=== PATIENT | female | born 1970 ===

== ENCOUNTER 2018-04-24 06:35 | Emergency (ER) | payer OTHER ==
[2018-04-24 08:22] LABS: BASO % 0.4 % (0.0-2.0); EOS # 0.2 K/uL (0.0-0.7); EOS % 2.1 % (0.0-4.0); HEMOGLOBIN 9.9 g/dL (12.0-16.0); LYMPH # 1.4 K/uL (1.0-4.3); LYMPH % 14.1 % (20.0-40.0); MEAN CELL VOLUME 68.9 fl (81.0-99.0); MONO # 0.9 K/uL (0.0-0.8); MONO % 9.3 % (0.0-10.0); NEUT # 7.5 K/uL (1.8-7.0); NEUT % 74.1 % (50.0-75.0); NRBC % 0.1 % (0.0-0.0); RBC 4.5 Mil/uL (3.80-5.20); RED CELL DISTRIBUTION WIDTH 16.7 % (11.5-14.5); WHITE BLOOD COUNT 10.1 K/uL (4.8-10.8)
[2018-04-24 08:32] LABS: BLOOD UREA NITROGEN 17 mg/dl (7-17); CALCIUM 8.9 mg/dL (8.4-10.2); GFR NON-AFRICAN AMERICAN > 60
--- NOTE | 2018-04-24 10:05 | RAD ---
Date of service: 04/24/2018 PROCEDURE: Radiographs of the right elbow. HISTORY: sudden onset of pain last night. no injury. COMPARISON: No prior. FINDINGS: BONES: Normal. No fracture. JOINTS: Trace osteoarthritis ulnar coronoid spurring. SOFT TISSUES: Normal. JOINT EFFUSION: None. OTHER FINDINGS: None. IMPRESSION: Trace osteoarthrosis-ulnar coronoid spurring. No fracture or lytic lesion.
[2018-04-24 11:06] VITALS: TEMP 97.9; O2SAT 98
--- NOTE | 2018-04-24 11:12 | ED PDOC ---
Upper Extremity Pain/Injury Time Seen by Provider: 04/24/18 07:07 Chief Complaint (Nursing): Upper Extremity Problem/Injury Past Medical History Vital Signs: Last Vital Signs Temp 97.9 F 04/24/18 06:49 Pulse 67 04/24/18 06:49 Resp 18 04/24/18 06:49 BP 121/78 04/24/18 06:49 Pulse Ox 98 04/24/18 06:49 - Family History Family History: States: No Known Family Hx - Home Medications Home Medications: Ambulatory Orders Medication Instructions Recorded Naproxen [Naprosyn] 500 mg PO BID PRN #20 tablet 04/24/18 - Allergies Allergies/Adverse Reactions: Allergies Allergy/AdvReac Type Severity Reaction Status Date / Time pollen extracts Allergy CONGESTION Verified 04/24/18 06:48 - Laboratory Results Result Diagrams: 04/24/18 08:10 04/24/18 08:10 - ECG O2 Sat by Pulse Oximetry: 98 Disposition - Clinical Impression Clinical Impression: Osteoarthrosis of right elbow - Patient ED Disposition Is Patient to be Admitted: No Doctor Will See Patient In The: Office Counseled Patient/Family Regarding: Diagnosis, Need For Followup, Rx Given - Disposition Referrals: [facility] [Outside] Disposition: Routine/Home Disposition Time: 10:45 Condition: IMPROVED Prescriptions: Naproxen [Naprosyn] 500 mg PO BID PRN #20 tablet PRN Reason: Pain, Moderate (4-7) Instructions: Osteoarthritis Forms: [facility] (Cymraes), [facility] School/Work Excuse Print Language: ISRAELI - POA Present On Arrival: None
--- NOTE | 2018-04-24 11:34 | ED PDOC ---
Upper Extremity Pain/Injury Time Seen by Provider: 04/24/18 07:07 Chief Complaint (Nursing): Upper Extremity Problem/Injury History Per: Patient (This 48 yo female states onset of severe right elbow pain last night while she was doing dishes as usual. Patient denies fall, blunt injury, overexertion or other injuries. She denies other medical problems. She took ibuprofen 400mg last night without significant relief.) History/Exam Limitations: no limitations Past Medical History Reviewed: Historical Data, Nursing Documentation, Vital Signs Vital Signs: Last Vital Signs Temp 97.9 F 04/24/18 06:49 Pulse 70 04/24/18 11:30 Resp 17 04/24/18 11:30 BP 118/90 04/24/18 11:30 Pulse Ox 98 04/24/18 11:30 - Medical History PMH: Anemia - Surgical History Surgical History: No Surg Hx - Family History Family History: States: No Known Family Hx - Living Arrangements Living Arrangements: With Family - Social History Current smoker - smoking cessation education provided: No - Home Medications Home Medications: Ambulatory Orders Medication Instructions Recorded Naproxen [Naprosyn] 500 mg PO BID PRN #20 tablet 04/24/18 - Allergies Allergies/Adverse Reactions: Allergies Allergy/AdvReac Type Severity Reaction Status Date / Time pollen extracts Allergy CONGESTION Verified 04/24/18 06:48 Review of Systems ROS Statement: Except As Marked, All Systems Reviewed And Found Negative Constitutional: Negative for: Fever, Chills Cardiovascular: Negative for: Chest Pain Respiratory: Negative for: Shortness of Breath Gastrointestinal: Negative for: Nausea, Vomiting Genitourinary Female: Negative for: Dysuria Physical Exam - Reviewed Nursing Documentation Reviewed: Yes Vital Signs Reviewed: Yes - Physical Exam Appears: Positive for: Well, No Acute Distress Head Exam: Positive for: ATRAUMATIC, NORMAL INSPECTION, NORMOCEPHALIC Skin: Positive for: Normal Color, Warm, DRY Eye Exam: Positive for: Normal appearance ENT: Positive for: Normal ENT Inspection Neck: Positive for: Normal Cardiovascular/Chest: Positive for: Regular Rate, Rhythm Respiratory: Positive for: CNT, Normal Breath Sounds Gastrointestinal/Abdominal: Positive for: Normal Exam, Soft Back: Positive for: Normal Inspection Extremity: Positive for: Normal ROM, Tenderness (along the elbow joint, especially along the lateral and and medial epicondyles.) Neurologic/Psych: Positive for: Alert, Oriented - Laboratory Results Result Diagrams: 04/24/18 08:10 04/24/18 08:10 - ECG O2 Sat by Pulse Oximetry: 98 Disposition - Clinical Impression Clinical Impression: Osteoarthrosis of right elbow - Patient ED Disposition Is Patient to be Admitted: No Doctor Will See Patient In The: Office Counseled Patient/Family Regarding: Diagnosis, Need For Followup, Rx Given - Disposition Referrals: [facility] [Outside] Disposition: Routine/Home Disposition Time: 10:45 Condition: IMPROVED Prescriptions: Naproxen [Naprosyn] 500 mg PO BID PRN #20 tablet PRN Reason: Pain, Moderate (4-7) Instructions: Osteoarthritis Forms: [facility] (Romansh), [facility] ED School/Work Excuse Print Language: THAI - POA Present On Arrival: None
[2018-04-24 11:47] VITALS: BP 118/90; PULSE 70; RESP 17
== END 2018-04-24 11:26 | disposition home or self-care (01) ==
LOC: H.ER 06:35
DX: M19.071 Primary osteoarthritis, right ankle and foot (principal); M19.021 Primary osteoarthritis, right elbow
CPT/HCPCS: 73080; 80048; 81025; 85025; 99283; J1885

== ENCOUNTER 2018-06-22 01:54 | Emergency (ER) | payer SELFPAY ==
[2018-06-22 02:25] VITALS: BP 130/82; PULSE 90; RESP 17; TEMP 99.4; O2SAT 96
--- NOTE | 2018-06-22 03:47 | ED PDOC ---
Upper Extremity Pain/Injury Time Seen by Provider: 06/22/18 02:30 Chief Complaint (Nursing): Upper Extremity Problem/Injury Chief Complaint (Provider): Upper Extremity Problem/Injury History Per: Patient History/Exam Limitations: no limitations Onset/Duration Of Symptoms: Days (x1) Current Symptoms Are (Timing): Still Present Additional Complaint(s): 48 year old female presents to ED with right shoulder pain that exacerbates with movement status post house cleaning. Patient states she had similar symptoms in the past then diagnosed with arthritis at the time. She took Tylenol with minimal relief. Otherwise, patient denies any falls, blunt trauma or injury to affected area. PCP: [facility] Gutierrez Past Medical History Reviewed: Historical Data, Nursing Documentation, Vital Signs Vital Signs: Last Vital Signs Temp 99.4 F 06/22/18 02:06 Pulse 90 06/22/18 02:06 Resp 17 06/22/18 02:06 BP 130/82 06/22/18 02:06 Pulse Ox 96 06/22/18 02:06 - Medical History PMH: Anemia - Family History Family History: States: Unknown Family Hx - Home Medications Home Medications: Ambulatory Orders Medication Instructions Recorded Naproxen [Naprosyn] 500 mg PO BID PRN #20 tablet 04/24/18 Naproxen [Naprosyn] 500 mg PO Q12 #14 tab 06/22/18 - Allergies Allergies/Adverse Reactions: Allergies Allergy/AdvReac Type Severity Reaction Status Date / Time pollen extracts Allergy CONGESTION Verified 04/24/18 06:48 Review of Systems ROS Statement: Except As Marked, All Systems Reviewed And Found Negative Musculoskeletal: Positive for: Shoulder Pain (right-sided). Negative for: Other (blunt trauma or injury) Physical Exam - Reviewed Nursing Documentation Reviewed: Yes Vital Signs Reviewed: Yes - Physical Exam Appears: Positive for: Non-toxic, No Acute Distress Extremity: Positive for: Tenderness (over right bicep tendon and AC joint with passive ROM). Negative for: Deformity (or warmth/erythema of right shoulder) Neurologic/Psych: Positive for: Alert, Oriented. Negative for: Motor/Sensory Deficits - Laboratory Results Urine POC: Negative - ECG O2 Sat by Pulse Oximetry: 96 (RA) Pulse Ox Interpretation: Normal Medical Decision Making Medical Decision Making: Initial Impression: 48 year old female with frozen shoulder. Initial Plan: * Urine * Toradol 60mg IM * XR shoulder (right) Time: 322 --XR right shoulder interpreted by provider: (-) dislocation or fracture. Time: 414 --Upon provider reevaluation, patient is medically stable and requires no further treatment in the ED at this time. Patient will be discharged home with Rx for Naprosyn. Counseling was provided and all questions were answered regarding diagnosis. There is agreement to discharge plan. Return if symptoms persist or worsen. Clinical Impression: Frozen shoulder Scribe Attestation: Documented by Francine Hernandez, acting as a scribe for Jagdish Gomes MD. Provider Scribe Attestation: All medical record entries made by the Scribe were at my direction and personally dictated by me. I have reviewed the chart and agree that the record accurately reflects my personal performance of the history, physical exam, medical decision making, and the department course for this patient. I have also personally directed, reviewed, and agree with the discharge instructions and disposition. Disposition - Clinical Impression Clinical Impression: Frozen shoulder - Patient ED Disposition Is Patient to be Admitted: No Counseled Patient/Family Regarding: Studies Performed, Diagnosis, Rx Given - Disposition Disposition: Routine/Home Disposition Time: 04:15 Condition: STABLE Prescriptions: Naproxen [Naprosyn] 500 mg PO Q12 #14 tab Instructions: Frozen Shoulder, Frozen Shoulder Exercises Forms: [employer] (Kyrgyz) Print Language: CHINESE
--- NOTE | 2018-06-22 09:26 | RAD ---
Date of service: 06/22/2018 PROCEDURE: Radiographs of the Right Shoulder HISTORY: r/o fracture COMPARISON: No prior. FINDINGS: BONES: Normal. No fracture. JOINTS: Glenohumeral and acromioclavicular joints preserved. No significant osteoarthritis. SOFT TISSUES: Normal. OTHER FINDINGS: None. IMPRESSION: No evidence of acute displaced fracture nor dislocation
== END 2018-06-22 04:50 | disposition home or self-care (01) ==
LOC: H.ER 01:54
DX: M75.01 Adhesive capsulitis of right shoulder (principal)
CPT/HCPCS: 73030; 81025; 96372; 99284; J1885

== ENCOUNTER 2018-07-14 20:41 | Emergency (ER) | payer SELFPAY ==
[2018-07-14 20:52] VITALS: RESP 18
--- NOTE | 2018-07-14 21:29 | ED PDOC ---
Upper Extremity Pain/Injury Time Seen by Provider: 07/14/18 20:55 Chief Complaint (Nursing): Finger,Hand,&Wrist Chief Complaint (Provider): Upper Extremity Pain/Injury History Per: Patient History/Exam Limitations: no limitations Onset/Duration Of Symptoms: Days (x5) Current Symptoms Are (Timing): Still Present Additional Complaint(s): 48 y/o female with no significant PMHx presents to the ED for evaluation of right arm and hand swelling and pain, onset 5 days ago. Patient states she has began noticing pain and swelling has been increasingly worsening over the last five days thus prompting today's visit. Patient reports of taking Tylenol with minimal improvement. Patient states last dose of Tylenol was at 5:00 PM. Otherwise, patient denies trauma, fall, shortness of breath and any history of Hypercoagulability, DVT or PE in the past. PMD: Machelle Magana Past Medical History Reviewed: Historical Data, Nursing Documentation, Vital Signs Vital Signs: Last Vital Signs Temp 97.9 F 07/14/18 20:49 Pulse 66 07/14/18 20:49 Resp 18 07/14/18 20:49 BP 123/76 07/14/18 20:49 Pulse Ox 99 07/14/18 20:49 - Medical History PMH: Anemia - Surgical History Surgical History: No Surg Hx - Family History Family History: States: Unknown Family Hx - Home Medications Home Medications: Ambulatory Orders Medication Instructions Recorded Naproxen [Naprosyn] 500 mg PO BID PRN #20 tablet 04/24/18 Naproxen [Naprosyn] 500 mg PO Q12 #14 tab 06/22/18 - Allergies Allergies/Adverse Reactions: Allergies Allergy/AdvReac Type Severity Reaction Status Date / Time pollen extracts Allergy CONGESTION Verified 04/24/18 06:48 Review of Systems ROS Statement: Except As Marked, All Systems Reviewed And Found Negative Cardiovascular: Negative for: Chest Pain Respiratory: Negative for: Shortness of Breath Musculoskeletal: Positive for: Arm Pain (right), Hand Pain (right) Physical Exam - Reviewed Nursing Documentation Reviewed: Yes Vital Signs Reviewed: Yes - Physical Exam Appears: Positive for: No Acute Distress Cardiovascular/Chest: Positive for: Regular Rate, Rhythm. Negative for: Murmur Respiratory: Positive for: Normal Breath Sounds. Negative for: Respiratory Distress Pulses-Radial (L): 2+ Pulses-Radial (R): 2+ Extremity: Positive for: Capillary Refill (< 3 seconds), Swelling (from the right mid-forearm to the hand.). Negative for: Normal ROM (Decreased flexion of all five digits. Mildly decreased flexion at the wrists), Tenderness (on the forearm or hand), Deformity, Other (ecchymosis, erythema ) Neurologic/Psych: Positive for: Alert, Oriented. Negative for: Motor/Sensory Deficits - Laboratory Results Result Diagrams: 07/14/18 21:33 07/14/18 21:33 - ECG O2 Sat by Pulse Oximetry: 99 (RA) Pulse Ox Interpretation: Normal Medical Decision Making Medical Decision Making: Time: 2124 Plan: -- BMP -- CBC with Differentials -- D Dimer -- Duplex Upper Extremity Vein Right US Right Upper extremity venous duplex: No evidence of DVT. D-dimer: 683 Given significantly elevated D-dimer, pt to be ruled out for PE. Pt endorsed to [facility] pending chest CTA and re-evaluation. ___ Scribe Attestation: Documented by Tio Long, acting as a scribe Jay Oro PA-C. Provider Scribe Attestation: All medical record entries made by the Scribe were at my direction and personally dictated by me. I have reviewed the chart and agree that the record accurately reflects my personal performance of the history, physical exam, medical decision making, and the department course for this patient. I have also personally directed, reviewed, and agree with the discharge instructions and disposition. Disposition - Clinical Impression Clinical Impression: Swelling of right hand - Patient ED Disposition Is Patient to be Admitted: Transfer of Care - Disposition Disposition: Transfer of Care ([facility]) Disposition Time: 00:30 Condition: FAIR Forms: [employer] (Swazi)
[2018-07-14 21:36] LABS: BASO % 0.6 % (0.0-2.0); EOS # 0.2 K/uL (0.0-0.7); EOS % 2.4 % (0.0-4.0); HEMOGLOBIN 9.7 g/dL (12.0-16.0); LYMPH # 1.9 K/uL (1.0-4.3); LYMPH % 29.4 % (20.0-40.0); MEAN CELL VOLUME 68.2 fl (81.0-99.0); MEAN CORPUSCULAR HEMOGLOBIN 21.5 pg (27.0-31.0); MEAN CORPUSCULAR HGB CONC 31.6 g/dL (33.0-37.0); MEAN PLATELET VOLUME 8.3 fl (7.2-11.7); MONO # 0.6 K/uL (0.0-0.8); MONO % 9.4 % (0.0-10.0); NEUT # 3.8 K/uL (1.8-7.0); NEUT % 58.2 % (50.0-75.0); RBC 4.51 Mil/uL (3.80-5.20); RED CELL DISTRIBUTION WIDTH 18.7 % (11.5-14.5); WHITE BLOOD COUNT 6.5 K/uL (4.8-10.8)
[2018-07-14 21:45] LABS: BLOOD UREA NITROGEN 16 mg/dl (7-17); CALCIUM 8.8 mg/dL (8.4-10.2); GFR NON-AFRICAN AMERICAN > 60
--- NOTE | 2018-07-15 00:19 | ED PDOC ---
- Laboratory Results Result Diagrams: 07/14/18 21:33 07/14/18 21:33 Lab Results: D-Dimer, Quantitative 685 ng/mlDDU (0-230) H 07/14/18 21:33 - ECG O2 Sat by Pulse Oximetry: 99 (RA) Pulse Ox Interpretation: Normal Medical Decision Making Medical Decision Making: Case endorsed to account underwriter, Eldon LAGOS, at 0015. Pertinent details reviewed. Patient pending CTA evaluation to r/o PE. Labs reviewed, significant elevation of D-Dimer. Upper extremity U/S: no evidence of thrombosis as read per [facility]. [address] Angio Chest FINDINGS: Minimal groundglass densities of the left lower lobe. Normal enhancement of the main pulmonary artery and right and left pulmonary arteries. Normal enhancement of the bilateral peripheral pulmonary arteries. There is no demonstrated pulmonary embolism. Normal thoracic aorta and visualized great vessels. There is no demonstrated aortic dissection. Normal heart and pericardium. Normal mediastinum. Normal hilar regions. Normal visualized trachea and bronchi. The lungs are well expanded. Normal pulmonary parenchyma. Normal pleura. Normal chest wall structures. Normal osseous structures. Normal visualized upper abdomen. IMPRESSION: No demonstrated pulmonary embolism or arterial dissection. Minimal groundglass densities of the left lower lobe. Subsegmental atelectasis versus developing pneumonia. 0300 Case discussed with ED MD Low who states patient is appropriate for discharge and outpatient follow up with PMD. On re-evaluation, patient requesting additional pain medication before discharge. Tylenol 975mg PO ordered. Vitals stable. Lab/Diagnostic results d/w the patient in great detail. Diagnosis of vascular congestion of upper extremity d/w the patient. Based on history, exam and diagnostic results, plan will be for outpatient follow up. Patient instructed to follow-up with pmd / referral provided / the clinic in 1- 2 days without fail. Advised to take medication as prescribed. Return to the emergency room at any time for any new or worsening symptoms. Patient states she fully agrees with and understands discharge instructions. States that she agrees with the plan and disposition. Verbalized and repeated discharge instructions and plan. I have given the patient opportunity to ask any additional questions. Disposition Counseled Patient/Family Regarding: Studies Performed, Diagnosis, Need For Followup, Rx Given - Clinical Impression Clinical Impression: Swelling of right hand, Swelling of upper arm - POA Present On Arrival: None - Disposition Referrals: [facility] [Outside] Disposition: Routine/Home Disposition Time: 03:00 Condition: FAIR Additional Instructions: La atencin mdica de emergencia que recibi hoy se dirigi a dallas sntomas agudos. Si le recetaron algn medicamento, llnelo y tmelo segn las indicaciones. Los sntomas pueden tardar varios yeung en resolverse. Regrese al Departamento de Emergencias si dallas sntomas empeoran, no mejoran o si tiene otros problemas. Comunquese con rondon mdico dentro de 2 yeung para nichole nueva evaluacin y valentine un seguimiento o llame a nisreen de los mdicos / clnicas a los que samuel sido referido y que figuran en el formulario de Informacin de visita al paciente que se incluye en rondon paquete de estuardo. Lleve todos los documentos que le entregaron al momento del estuardo junto con todos los medicamentos que est tomando para rondon visita de seguimiento. Nuestro tratamiento no puede reemplazar la atencin mdica continua por parte de un proveedor de atencin primaria (PCP) fuera del departamento de emergencias. Prescriptions: Acetaminophen [Acetaminophen 8 Hour] 650 mg PO Q8 PRN #21 tablet.er PRN Reason: Pain, Moderate (4-7) Meloxicam [Mobic] 15 mg PO DAILY #10 tab Instructions: Dependent Edema (DC), Swelling Forms: [employer] (Colombian) Print Language: GUYANESE Results - Lab Results Lab Results: 07/14/18 07/14/18 07/14/18 21:33 21:33 21:33 WBC 6.5 RBC 4.51 Hgb 9.7 L Hct 30.7 L MCV 68.2 L MCH 21.5 L MCHC 31.6 L RDW 18.7 H Plt Count 241 MPV 8.3 Neut % (Auto) 58.2 Lymph % (Auto) 29.4 Garfield % (Auto) 9.4 Eos % (Auto) 2.4 Baso % (Auto) 0.6 Neut # (Auto) 3.8 Lymph # (Auto) 1.9 Garfield # (Auto) 0.6 Eos # (Auto) 0.2 Baso # (Auto) 0.0 D-Dimer, Quantitative 685 H Sodium 139 Potassium 3.8 Chloride 104 Carbon Dioxide 28 Anion Gap 11 BUN 16 Creatinine 0.7 Est GFR ( Amer) > 60 Est GFR (Non-Af Amer) > 60 Random Glucose 102 Calcium 8.8
[2018-07-15] MEDS ORDERED: Iodixanol 320 MG/ML 100 ML BOTTLE IV ONE (01:40)
[2018-07-15] MEDS ORDERED: Sodium Chloride 0.9% 50 ML IV ONE (01:40)
[2018-07-15 04:03] VITALS: BP 126/81; PULSE 65; TEMP 98.6; O2SAT 98
--- NOTE | 2018-07-15 10:14 | CT ---
Date of service: 07/15/2018 PROCEDURE: CT Chest with contrast (Pulmonary Angiogram) HISTORY: elevated D-dimer, Right arm swelling COMPARISON: None available. TECHNIQUE: Axial computed tomography images were obtained of the chest in the pulmonary arterial phase of enhancement. Coronal and sagittal reformatted images were created and reviewed. Intravenous contrast dose: Visipaque 320, 95 cc Radiation dose: Total exam DLP = 321.42 mGy-cm. This CT exam was performed using one or more of the following dose reduction techniques: Automated exposure control, adjustment of the mA and/or kV according to patient size, and/or use of iterative reconstruction technique. FINDINGS: PULMONARY ARTERIES: Unremarkable. No pulmonary embolism. AORTA: No acute findings. No thoracic aortic aneurysm. No aortic atherosclerotic calcification or mural plaque present. LUNGS: Limited ground-glass opacity bilateral bases, minimal. No nodule, mass or pulmonary consolidation. PLEURAL SPACES: Unremarkable. No effusion or pneumothorax. HEART: Mild cardiomegaly. No pulmonary vascular congestion. No significant pericardial effusion. LYMPH NODES: No lymphadenopathy. BONES, CHEST WALL: Unremarkable. No fracture or destructive lesion OTHER FINDINGS: Unremarkable. IMPRESSION: Unremarkable CT pulmonary angiogram. No pulmonary embolus. Minimal ground-glass opacity bilateral lower lobe bases. Mild cardiomegaly. No pulmonary vascular congestion evident. Concordant preliminary report from [facility], 07/15/2018 2:50 a.m..
--- NOTE | 2018-07-15 11:31 | US ---
Date of service: 07/14/2018 PROCEDURE: RIGHT UPPER EXTREMITY VENOUS DOPPLER ULTRASOUND HISTORY: unilateral Right arm and hand swelling x 5 days COMPARISON: None available. TECHNIQUE: Duplex Doppler ultrasonography of the major deep veins of the right upper extremity is been performed including graded compression and augmentation where possible. FINDINGS: Good compressibility and augmentation are identified at the right subclavian, axillary, brachial and cephalic as well as basilic veins. Robust color Doppler blood flow is seen the right internal jugular vein which compresses well. Normal phasic spectral patterns are appreciate throughout the veins of the right upper extremity further. IMPRESSION: No sonographic evidence to suggest deep venous thrombosis right upper extremity. Concordant preliminary report from [facility], 07/15/2018 12:31 a.m..
== END 2018-07-15 03:30 | disposition home or self-care (01) ==
LOC: H.ER 20:41
DX: R22.31 Localized swelling, mass and lump, right upper limb (principal); M25.511 Pain in right shoulder
CPT/HCPCS: 71275; 80048; 81025; 85025; 85378; 93971; 99283; Q9967

== ENCOUNTER → 2018-07-28 | Emergency (ER) | payer SELFPAY ==
[2018-07-28 04:48] VITALS: BP 136/76; PULSE 91; RESP 18; TEMP 98.5; O2SAT 99
--- NOTE | 2018-07-28 05:20 | ED PDOC ---
Upper Extremity Pain/Injury Time Seen by Provider: 07/28/18 04:46 Chief Complaint (Nursing): Upper Extremity Problem/Injury Chief Complaint (Provider): Upper Extremity Problem/Injury History Per: Patient History/Exam Limitations: no limitations Onset/Duration Of Symptoms: Days (x2 days) Additional Complaint(s): India Garcia is a 48 year old female with no past medical history, who presents to the emergency department complaining of having shoulder and neck pain, associated with LUQ abdominal pain and vomiting, onset x2 days. Patient states that her neck and shoulder pain is worse with movement. She denies having any fever, diarrhea, chest pain or difficulty breathing. PMD: Dr. hutchison in [facility] Past Medical History Reviewed: Historical Data, Nursing Documentation, Vital Signs Vital Signs: Last Vital Signs Temp 98.5 F 07/28/18 03:58 Pulse 91 H 07/28/18 03:58 Resp 18 07/28/18 03:58 BP 136/76 07/28/18 03:58 Pulse Ox 99 07/28/18 03:58 - Medical History PMH: Anemia - Surgical History Other surgeries: tubal ligation - Family History Family History: States: Unknown Family Hx - Home Medications Home Medications: Ambulatory Orders Medication Instructions Recorded Naproxen [Naprosyn] 500 mg PO BID PRN #20 tablet 04/24/18 Acetaminophen [Acetaminophen 8 650 mg PO Q8 PRN #21 tablet.er 07/15/18 Hour] Meloxicam [Mobic] 15 mg PO DAILY #10 tab 07/15/18 Cyclobenzaprine [Cyclobenzaprine 10 mg PO TID PRN #15 tab 07/28/18 HCl] Naproxen [Naprosyn] 500 mg PO Q12 #20 tab 07/28/18 - Allergies Allergies/Adverse Reactions: Allergies Allergy/AdvReac Type Severity Reaction Status Date / Time pollen extracts Allergy CONGESTION Verified 07/28/18 04:32 Review of Systems ROS Statement: Except As Marked, All Systems Reviewed And Found Negative Constitutional: Negative for: Fever Cardiovascular: Negative for: Chest Pain Respiratory: Negative for: Shortness of Breath Gastrointestinal: Positive for: Vomiting, Abdominal Pain Musculoskeletal: Positive for: Neck Pain, Shoulder Pain Physical Exam - Reviewed Nursing Documentation Reviewed: Yes Vital Signs Reviewed: Yes - Physical Exam Appears: Positive for: No Acute Distress Head Exam: Positive for: ATRAUMATIC, NORMOCEPHALIC Skin: Positive for: Normal Color, Warm, Dry Neck: Positive for: Limited ROM (due to pain), Pain On Movement Of Neck. Negative for: Normal (tenderness to left lateral neck and shoulder ) Cardiovascular/Chest: Positive for: Regular Rate, Rhythm Respiratory: Positive for: Normal Breath Sounds. Negative for: Respiratory Distress Gastrointestinal/Abdominal: Positive for: Normal Exam, Soft. Negative for: Tenderness Extremity: Negative for: Normal ROM (Limited ROM secondary to pain at left shoulder), Deformity, Swelling Neurologic/Psych: Positive for: Alert, Oriented - Laboratory Results Result Diagrams: 07/28/18 05:08 07/28/18 05:08 - ECG O2 Sat by Pulse Oximetry: 99 (RA) Pulse Ox Interpretation: Normal - Progress Re-evaluation Time: 06:16 Condition: Re-examined, Improved Medical Decision Making Medical Decision Making: Time: 453 Impression: vomiting, musculoskeletal pain, atypical ACS; less likely gallbladder disease or pancreatitis. Plan: --EKG --CMP --Lipase --Troponin I --CBC with differential --Flexeril 10 mg PO --Toradol 30 mg IM Scribe Attestation: Documented by Son Humphries, acting as a scribe for Precious Alexandra MD. Provider Scribe Attestation: All medical record entries made by the Scribe were at my direction and personally dictated by me. I have reviewed the chart and agree that the record accurately reflects my personal performance of the history, physical exam, medical decision making, and the department course for this patient. I have also personally directed, reviewed, and agree with the discharge instructions and disposition. Disposition - Clinical Impression Clinical Impression: Shoulder pain - Patient ED Disposition Is Patient to be Admitted: No Doctor Will See Patient In The: Office Counseled Patient/Family Regarding: Studies Performed, Diagnosis, Need For Followup - Disposition Disposition: Routine/Home Disposition Time: 06:17 Condition: GOOD Additional Instructions: INDIA GARCIA, thank you for letting us take care of you today. Your provider was Precious Alexandra MD and you were treated for CHEST PAIN. The emergency medical care you received today was directed at your acute symptoms. If you were prescribed any medication, please fill it and take as directed. It may take several days for your symptoms to resolve. Return to the Emergency Department if your symptoms worsen, do not improve, or if you have any other problems. Please contact your doctor or call one of the physicians/clinics you have been referred to that are listed on the Patient Visit Information form that is included in your discharge packet. Bring any paperwork you were given at discharge with you along with any medications you are taking to your follow up visit. Our treatment cannot replace ongoing medical care by a primary care provider outside of the emergency department. Thank you for allowing the [facility] team to be part of your care today. If you had an X-Ray or CT scan: A Radiologist will review the ED reading if any change in treatment is needed we will contact you. If you had a blood, urine, or wound culture: It will take several days for the results, if any change in treatment is needed we will contact you. If you had an STI test: It will take 48 hours for the results. Please call after 1 week if you have not heard back. Prescriptions: Cyclobenzaprine [Cyclobenzaprine HCl] 10 mg PO TID PRN #15 tab PRN Reason: Muscle Spasm Naproxen [Naprosyn] 500 mg PO Q12 #20 tab Instructions: Shoulder Pain (DC)
[2018-07-28 05:24] LABS: BASO # 0.1 K/uL (0.0-0.2); BASO % 0.6 % (0.0-2.0); EOS # 0.1 K/uL (0.0-0.7); EOS % 0.6 % (0.0-4.0); HEMOGLOBIN 10.2 g/dL (12.0-16.0); LYMPH # 1.3 K/uL (1.0-4.3); LYMPH % 12.9 % (20.0-40.0); MEAN CORPUSCULAR HEMOGLOBIN 21.6 pg (27.0-31.0); MEAN CORPUSCULAR HGB CONC 31.6 g/dL (33.0-37.0); MEAN PLATELET VOLUME 7.8 fl (7.2-11.7); MONO # 0.8 K/uL (0.0-0.8); MONO % 8.3 % (0.0-10.0); NEUT # 7.7 K/uL (1.8-7.0); NEUT % 77.6 % (50.0-75.0); RBC 4.73 Mil/uL (3.80-5.20); RED CELL DISTRIBUTION WIDTH 19.6 % (11.5-14.5); WHITE BLOOD COUNT 9.9 K/uL (4.8-10.8)
[2018-07-28 05:28] LABS: MEAN CELL VOLUME 68.3 fl (81.0-99.0)
[2018-07-28 05:50] LABS: ALB/GLOB RATIO 1.2 (1.0-2.1); ALBUMIN 4.3 g/dL (3.5-5.0); ALT/SGPT 26 U/L (9-52); AST/SGOT 29 U/L (14-36); BLOOD UREA NITROGEN 12 mg/dl (7-17); CALCIUM 8.9 mg/dL (8.4-10.2); GFR NON-AFRICAN AMERICAN > 60; LIPASE 62 U/L (23-300)
--- NOTE | 2018-07-28 21:40 | CARD ---
APPROVED REPORT Date of service: 07/28/2018 EKG Measurement Heart [id number] <Conclusion> Normal sinus rhythm Normal ECG
== END | disposition home or self-care (01) ==
LOC: H.ER 03:47
DX: M25.512 Pain in left shoulder (principal); M54.2 Cervicalgia; R10.12 Left upper quadrant pain
CPT/HCPCS: 80053; 81025; 83690; 84484; 85025; 93005; 96374; 99282; J1885

== ENCOUNTER 2018-10-19 17:38 | Emergency (ER) | payer SELFPAY ==
[2018-10-19 18:24] VITALS: BP 139/76; PULSE 72; RESP 16; TEMP 98.1; O2SAT 100
--- NOTE | 2018-10-19 18:52 | ED PDOC ---
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 Patient states that she woke up with this pain. pain is worse with movement and weight bearing. Patient reports having a similar pain in her arm and shoulders in the past. Patient is unsure if she has arthritis. Patient reports taking tylenol today 2x hours prior to arrival with no relief. Patient denies having any injuries to the knee. Denies numbness or tingling, decrease motor or sensation PMD: [facility] - Hip Currently Unable To: Bear Weight Past Medical History Reviewed: Historical Data, Nursing Documentation, Vital Signs Vital Signs: Last Vital Signs Temp 98.1 F 10/19/18 18:21 Pulse 72 10/19/18 18:21 Resp 16 10/19/18 18:21 BP 139/76 10/19/18 18:21 Pulse Ox 100 10/19/18 18:21 RACHEAL Report Viewed: Yes - Medical History PMH: Anemia Denies: Diabetes, HTN, Chronic Kidney Disease - Surgical History Other surgeries: tubal ligation - Family History Family History: States: No Known Family Hx - Social History Current smoker - smoking cessation education provided: No Alcohol: None Drugs: Denies - Home Medications Home Medications: Ambulatory Orders Medication Instructions Recorded Naproxen [Naprosyn] 500 mg PO BID PRN #20 tablet 04/24/18 Acetaminophen [Acetaminophen 8 650 mg PO Q8 PRN #21 tablet.er 07/15/18 Hour] Meloxicam [Mobic] 15 mg PO DAILY #10 tab 07/15/18 Cyclobenzaprine [Cyclobenzaprine 10 mg PO TID PRN #15 tab 07/28/18 HCl] Naproxen [Naprosyn] 500 mg PO Q12 #20 tab 07/28/18 Naproxen 500 mg PO BID PRN #20 tab 10/19/18 - Allergies Allergies/Adverse Reactions: Allergies Allergy/AdvReac Type Severity Reaction Status Date / Time pollen extracts Allergy CONGESTION Verified 07/28/18 04:32 Review of Systems ROS Statement: Except As Marked, All Systems Reviewed And Found Negative Musculoskeletal: Positive for: Other (right knee pain) Physical Exam - Reviewed Nursing Documentation Reviewed: Yes Vital Signs Reviewed: Yes - Physical Exam Comments: GENERAL APPEARANCE: Patient is awake, alert, oriented x 3, in no acute distress. SKIN: Warm, dry; (-) cyanosis. RIGHT LOWER EXTREMITY: pulses 2+, capillary refill <2 seconds, full ROM of leg, but causes pain. (+) lateral and posterior knee pain, (-) calf tenderness, (-) swelling, (-) erythema. Neurovascular intact. CARDIOVASCULAR: (+) distal pulse. NEUROLOGIC: (+) distal sensation. - ECG O2 Sat by Pulse Oximetry: 100 (RA) Pulse Ox Interpretation: Normal - Radiology X-Ray: Interpreted by Me, Viewed By Me (see MDM note) Medical Decision Making Medical Decision Makin:22 Initial impression: 48 year old female with knee pain Initial plan: * XRay knee right 3 views * toradol 30 mg IM * reevaluation 19:35 XRay knee read and reviewed by me: (-) acute fractures, (-) dislocations. (+) mild degenerative changes. Upon reevaluation, patient reports having an improvement of symptoms. Stalin wrap applied to knee. Patient to follow up with orthopedist. Discussed results, diagnosis, treatment, return precautions and f/u with pt who is understanding, in agreement and stable for dc Scribe Attestation: Documented by Patricia Gramajo, acting as a scribe for Adarsh Cochran PA-C. Provider Scribe Attestation: All medical record entries made by the Scribe were at my direction and personally dictated by me. I have reviewed the chart and agree that the record accurately reflects my personal performance of the history, physical exam, medical decision making, and the department course for this patient. I have also personally directed, reviewed, and agree with the discharge instructions and disposition. Disposition - Clinical Impression Clinical Impression: Knee pain, Osteoarthritis - Patient ED Disposition Is Patient to be Admitted: No Counseled Patient/Family Regarding: Studies Performed, Diagnosis, Need For Followup, Rx Given - Disposition Referrals: formerly [facility] [Outside] Disposition: Routine/Home Disposition Time: 20:03 Condition: IMPROVED Additional Instructions: Radha por dejarnos cuidar de ti hoy. Gause los medicamentos segn lo prescrito para el dolor. Descansar, hielo y elevar. Use nichole envoltura stalin para compresin y soporte. Valentine un seguimiento con la clnica. La atencin mdica de emergencia que recibi hoy se dirigi a dallas sntomas agudos. Si le recetaron algn medicamento, llnelo y tmelo segn las indicaciones. Los sntomas pueden tardar varios yeung en resolverse. Regrese al Departamento de Emergencias si dallas sntomas empeoran, no mejoran o si tiene otros problemas. Comunquese con rondon mdico dentro de 2 yeung para nichole nueva evaluacin y valentine un seguimiento o llame a nisreen de los mdicos / clnicas a los que samuel sido referido y que figuran en el formulario de Informacin de visita al paciente que se incluye en rondon paquete de estuardo. Lleve todos los documentos que recibi al momento del estuardo junto con los medicamentos que est tomando para rondon visita de seguimiento. Nuestro tratamiento no puede reemplazar la atencin mdica continua por parte de un proveedor de atencin primaria (PCP) fuera del departamento de emergencias. Prescriptions: Naproxen 500 mg PO BID PRN #20 tab PRN Reason: Pain, Moderate (4-7) Instructions: Osteoarthritis (DC), Knee Pain Print Language: SUDANESE - POA Present On Arrival: None
--- NOTE | 2018-10-20 09:01 | RAD ---
Date of service: 10/19/2018 PROCEDURE: Right Knee Radiographs. HISTORY: lateral knee pain COMPARISON: None. TECHNIQUE: Three views of the right knee were obtained. FINDINGS: BONES: Normal. No fracture. JOINTS: Minor medial compartment narrowing is noted with minimal spurring. On the patellar view there is mild lateral patellar tilt and/or subluxation. No focal osteochondral defect or loose body is seen. JOINT EFFUSION: None. OTHER FINDINGS: None. IMPRESSION: No evidence of fracture or joint effusion. Please see above.
== END 2018-10-19 20:08 | disposition home or self-care (01) ==
LOC: H.ER 17:38
DX: M25.561 Pain in right knee (principal); M17.11 Unilateral primary osteoarthritis, right knee
CPT/HCPCS: 73562; 81025; 96372; 99284; J1885